=== PATIENT | female | born 1980 | race American Indian/Alaskan Native ===

== ENCOUNTER 2021-06-06 09:28 | Emergency (ER) | payer SELFPAY ==
[2021-06-06 10:09] VITALS: BP 129/110
[2021-06-06] MEDS ORDERED: DEXAMETHASONE 4 MG TAB PO ONE (11:27)
[2021-06-06] MEDS ORDERED: IBUPROFEN 600 MG TAB PO ONE (11:27)
--- NOTE | 2021-06-06 11:31 | Emergency Department Report ---
ED Extremity Problem HPI - General Chief complaint: Extremity Injury, Upper Stated complaint: EXTREMITY INJURY Time Seen by Provider: 06/06/21 11:14 Source: patient Mode of arrival: Ambulatory Limitations: No Limitations - History of Present Illness Initial comments: 41-year-old female presents to the ER today complaint of left wrist pain. Patient states that she noticed the pain yesterday. She states that she woke up with the pain. She does not recall any injury, but she states that she thinks she may have slept on it in a hyper flexed position. 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 She states that the pain is mainly to the dorsal aspect the wrist with associated swelling in the wrist and down into the hands. She reports severe pain with movement of the wrist. She reports no apparent redness or bruising. She denies any numbness or tingling or weakness. She has not taken anything for the pain. She denies any chronic medical issues. MD Complaint: joint swelling, joint paint, other (left wrist pain and swelling) -: Gradual, days(s) (1) Location: left - Related Data Previous Rx's Medication Instructions Recorded Last Taken Type Ibuprofen [Motrin] 600 mg PO Q8H PRN #30 tablet 06/06/21 Unknown Rx methylPREDNISolone [Medrol 4MG 4 mg PO DAILY #1 tab.ds.pk 06/06/21 Unknown Rx DOSEPAK (21 tabs)] Allergies Allergy/AdvReac Type Severity Reaction Status Date / Time No Known Allergies Allergy Unverified 06/06/21 10:09 ED Review of Systems ROS: Stated complaint: EXTREMITY INJURY Other details as noted in HPI Comment: All other systems reviewed and negative Musculoskeletal: joint swelling, arthralgia ED Past Medical Hx - Medications Home Medications: Home Medications Medication Instructions Recorded Confirmed Last Taken Type Ibuprofen [Motrin] 600 mg PO Q8H PRN #30 tablet 06/06/21 Unknown Rx methylPREDNISolone [Medrol 4MG 4 mg PO DAILY #1 tab.ds.pk 06/06/21 Unknown Rx DOSEPAK (21 tabs)] ED Physical Exam - General Limitations: No Limitations General appearance: alert, in no apparent distress - Head Head exam: Present: atraumatic, normocephalic - Eye Eye exam: Present: normal appearance, PERRL, EOMI Pupils: Present: normal accommodation - Neck Neck exam: Present: normal inspection, full ROM - Respiratory Respiratory exam: Present: normal lung sounds bilaterally. Absent: respiratory distress, wheezes, rales, rhonchi - Cardiovascular Cardiovascular Exam: Present: regular rate, normal rhythm, normal heart sounds - Expanded Upper Extremity Exam Right Hand Wrist exam: Present: tenderness (Moderate tenderness to the dorsal aspect of the left wrist.), swelling (Mild swelling to the dorsal aspect of the wrist, including the hand and fingers.). Absent: full ROM (Range of motion of the left wrist reduce due to pain.), abrasion, laceration, ecchymosis, deformity, crepidus, dislocation, erythema, amputation, nail avulsion, subungual hematoma Vascular: Present: normal capillary refill, radial pulse (Normal). Absent: vascular compromise - Neurological Exam Neurological exam: Present: alert, oriented X3, CN II-XII intact, normal gait - Psychiatric Psychiatric exam: Present: normal affect, normal mood - Skin Skin exam: Present: intact ED Course Vital Signs 06/06/21 10:07 Temperature 99.3 F Respiratory 16 Rate Blood Pressure 129/110 ED Medical Decision Making - Medical Decision Making 41-year-old female presents to the ER today complaint of left wrist pain. Patient states that she noticed the pain yesterday. She states that she woke up with the pain. She does not recall any injury, but she states that she thinks she may have slept on it in a hyper flexed position. 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 She states that the pain is mainly to the dorsal aspect the wrist with associated swelling in the wrist and down into the hands. She reports severe pain with movement of the wrist. She reports no apparent redness or bruising. She denies any numbness or tingling or weakness. Denies any fever or chills. She has not taken anything for the pain. She denies any chronic medical issues. 1155: Examination of patient wrist does not suggest septic joint, DVT, acute arterial occlusion, cellulitis, deep space abscess nor any other acute emergent conditions warranting testing at this time. Symptoms could be related to tendinitis versus sprain versus inflammatory process (RA/OA/possible gout). Patient is not toxic or ill-appearing. She is afebrile, neurologically intact and with a normal gait. Discussed suspected diagnosis with patient. She will be given a wrist splint, and medication to help with pain and inflammation. She was instructed to follow-up with her PCP and Ortho if symptoms does not improve, but she is aware of worsening signs and symptoms for which she should return immediately to the ER. Patient expressed understanding of instructions and agree with plan. Patient stable at time of discharge. Critical care attestation.: If time is entered above; I have spent that time in minutes in the direct care of this critically ill patient, excluding procedure time. ED Disposition Clinical Impression: Wrist pain, left Disposition: HOME / SELF CARE / HOMELESS Is pt being admited?: No Does the pt Need Aspirin: No Condition: Stable Additional Instructions: I recommend that you take the Medrol Dosepak and the ibuprofen as prescribed to help the pain. Use the wrist splint as discussed. If your symptoms does not seem to improve after 1 to 2 weeks I do recommend follow-up with your primary care doctor, and or medical affairs specialist. A PCP and medical affairs specialist will be provided for you to discharge instructions. Return to the ER if your symptoms changes or worsens in any way. Prescriptions: methylPREDNISolone [Medrol 4MG DOSEPAK (21 tabs)] 4 mg PO DAILY #1 tab.ds.pk Ibuprofen [Motrin] 600 mg PO Q8H PRN #30 tablet PRN Reason: Pain Referrals: TIERRA BENOIT MD [Staff Physician] - 3-5 Days MARK CANTU MD [Staff Physician] - 3-5 Days LULI RIVERA MD [Staff Physician] - 3-5 Days (medical affairs specialist) Forms: Work/School Release Form(ED) Time of Disposition: 11:32
== END 2021-06-06 12:32 | disposition home or self-care (01) ==
LOC: ED 09:28
DX: M25.532 Pain in left wrist (principal)
CPT/HCPCS: 99282